=== PATIENT | male | born 1950 | race Caucasian/White ===

== ENCOUNTER 2019-03-22 17:11 | Inpatient (IN) | payer BC, MEDICARE ==
[~2019-03-22] VITALS: Ht 182.9 cm; Wt 113.7 kg
[2019-03-22] MEDS ORDERED: OMEPRAZOLE40 MG PO (17:17)
[2019-03-22] MEDS ORDERED: FLOMAX0.4 MG PO (17:17)
[2019-03-22] MEDS ORDERED: ELIQUIS5 MG PO (17:17)
[2019-03-22] MEDS ORDERED: LOVASTATIN40 MG PO (17:17)
[2019-03-22] MEDS ORDERED: BETAPACE 80 MG80 MG PO (17:17)
[2019-03-22] MEDS ORDERED: DIOVAN320 MG PO (17:17)
[2019-03-22] MEDS ORDERED: NEURONTIN600 MG PO (17:18)
--- NOTE | 2019-03-22 17:22 | NUR ---
FSBS= 151 MG/DL
[2019-03-22 17:45] LABS: BASOPHILS 0.1 % (0-2); EOSINOPHILS 0.5 % (0-7); HEMATOCRIT 45.2 % (42.0-54.0); HEMOGLOBIN 15.8 g/dL (13.5-17.5); IMMATURE GRANULOCYTES 0.2 % (0-5); LYMPHOCYTES 3.8 % (15-50); MCH 33.1 pg (26.0-34.0); MCV 94.6 fL (80.0-100.0); MEAN PLATELET VOLUME 9.9 fL (7.4-10.4); NEUTROPHILS 86.4 % (40-80); PLATELET COUNT 167 10x3/uL (130-400); RBC 4.78 10x6/uL (4.20-6.10); RDW 12.9 % (11.5-14.5); WBC 10.3 10x3/uL (4.8-10.8)
[2019-03-22 17:55] LABS: CALC OSMOLALITY 277 mosm/kg (275-300); CALCIUM 9.2 mg/dL (8.5-10.1); CARBON DIOXIDE 28.6 mmol/L (21.0-32.0); CHLORIDE - SERUM 99 mmol/L (98-107); GLUCOSE 152 mg/dL (74-106); POTASSIUM - SERUM 4.4 mmol/L (3.5-5.1); SODIUM 137 mmol/L (136-145); UREA NITROGEN 15 mg/dL (7-18); eGFR NON AFRICAN AMERICAN 78 mL/min (90-120)
[2019-03-22 17:56] LABS: APTT 32.7 SECONDS (22.8-39.4); INR 1.14 (0.85-1.17); PROTIME 14.6 SECONDS (11.6-15.0)
[2019-03-22 18:19] LABS: ALBUMIN 4.1 g/dL (3.4-5.0); ALKALINE PHOSPHATASE 78 U/L (46-116); ALT (SGPT) 48 U/L (10-68); BILIRUBIN - TOTAL 0.47 mg/dL (0.2-1.3); CKMB 0.8 U/L (0.0-3.6); CREATINE KINASE 140 UL (21-232); PROTEIN - SERUM 7.8 g/dL (6.4-8.2); THYROID STIMULATING HORMONE 1.49 uIU/mL (0.36-3.74)
--- NOTE | 2019-03-22 18:30 | NUR ---
IBU WOULD NOT SCAN, ATTEMPTED, STATED IT WASN'T ON THE PATIENT MAR
[2019-03-22 18:31] VITALS: BP 182/81
[2019-03-22 18:51] LABS: TROPONIN-I < 0.017 ng/mL (0.000-0.060)
[2019-03-22 19:33] VITALS: BP 159/94
--- NOTE | 2019-03-22 19:51 | NUR ---
URINE COLLECTED VIA URINAL AND SENT
[2019-03-22 20:19] LABS: UDS - AMPHET NEGATIVE QUAL (NEGATIVE); UDS - BARB NEGATIVE QUAL (NEGATIVE); UDS - BENZO NEGATIVE QUAL (NEGATIVE); UDS - COCAINE NEGATIVE QUAL (NEGATIVE); UDS - OPIATE NEGATIVE QUAL (NEGATIVE); UDS - PCP NEGATIVE QUAL (NEGATIVE); UDS - THC NEGATIVE QUAL (NEGATIVE)
[2019-03-22 20:22] LABS: APPEARANCE CLEAR (CLEAR); BILIRUBIN NEGATIVE (NEGATIVE); COLOR YELLOW (YELLOW); GLUCOSE NEGATIVE (NEGATIVE); KETONE SMALL mg/dL (NEGATIVE); NITRITE NEGATIVE (NEGATIVE); PROTEIN NEGATIVE (NEGATIVE); UROBILINOGEN NORMAL (NORMAL)
[2019-03-22 20:53] VITALS: BP 152/91
--- NOTE | 2019-03-22 20:53 | NUR ---
PATIENT RESTING QUIETLY WITH NO COMPLAINTS AT THIS TIME,CALL LIGHT WITHIN REACH, WENT HOME.
--- NOTE | 2019-03-23 00:38 | NUR ---
RECEIVED PATIENT TO ROOM 2110 @ 2245. PATIENT AAOX4, UP WITH ASSIST. NO S/S OF DISTRESS OBSERVED, RR EVEN AND UNLABORED ON ROOM AIR. DROPLET CAUTIONS INITIATED FOR FLU. PIV TO RT UPPER ARM, INFUSING NS@ 125ML/HR, DRSG C/D/I. QUICK START, MED REC, ADULT HX, SRS COMPLETED. VSS. AFTERSCHOOL BABYSITTER PLACED ON PATIENT. PATIENT DENIES NEEDS AT THIS TIME. CL IN REACH, BED LOCKED AND LOWERED. WILL CTM.
[2019-03-23 03:45] VITALS: BP 169/89; BMI 33.7
[2019-03-23 04:42] VITALS: BP 163/83
[2019-03-23 05:11] LABS: BASOPHILS 0 % (0-2); EOSINOPHILS 0.7 % (0-7); HEMATOCRIT 42.5 % (42.0-54.0); HEMOGLOBIN 14.8 g/dL (13.5-17.5); IMMATURE GRANULOCYTES 0.1 % (0-5); LYMPHOCYTES 10.7 % (15-50); MCH 32.8 pg (26.0-34.0); MCHC 34.8 g/dL (31.0-37.0); MCV 94.2 fL (80.0-100.0); MONOCYTES 12.1 % (2-11); NEUTROPHILS 76.4 % (40-80); PLATELET COUNT 148 10x3/uL (130-400); RBC 4.51 10x6/uL (4.20-6.10); RDW 12.9 % (11.5-14.5)
[2019-03-23 05:23] LABS: WBC 7.2 10x3/uL (4.8-10.8)
[2019-03-23 05:28] LABS: APTT 33.3 SECONDS (22.8-39.4); INR 1.12 (0.85-1.17); PROTIME 14.4 SECONDS (11.6-15.0)
[2019-03-23 06:31] LABS: ALBUMIN 3.6 g/dL (3.4-5.0); ALKALINE PHOSPHATASE 68 U/L (46-116); BILIRUBIN - TOTAL 0.42 mg/dL (0.2-1.3); CALC OSMOLALITY 279 mosm/kg (275-300); CALCIUM 8.6 mg/dL (8.5-10.1); CARBON DIOXIDE 23.7 mmol/L (21.0-32.0); CHLORIDE - SERUM 103 mmol/L (98-107); CKMB 1.2 U/L (0.0-3.6); GLUCOSE 139 mg/dL (74-106); PHOSPHOROUS 2.9 mg/dL (2.5-4.9); POTASSIUM - SERUM 3.8 mmol/L (3.5-5.1); PROTEIN - SERUM 7.5 g/dL (6.4-8.2); SODIUM 139 mmol/L (136-145); TROPONIN-I < 0.017 ng/mL (0.000-0.060); UREA NITROGEN 13 mg/dL (7-18); eGFR NON AFRICAN AMERICAN 78 mL/min (90-120)
[2019-03-23 06:32] LABS: ALT (SGPT) 34 U/L (10-68); CREATINE KINASE 236 UL (21-232)
[2019-03-23 12:01] VITALS: BP 173/97
[2019-03-23 13:31] VITALS: Ht 182.9 cm; Wt 113.7 kg
[2019-03-23 14:18] VITALS: BP 140/77
--- NOTE | 2019-03-23 16:07 | NUR ---
PT FOUND TO BE STANDING UP IN ROOM AT DOORWAY WITH BLOOD DRIPPING FROM ARM WHERE IV USED TO BE. PRESSURE HELD AND PT PLACED IN CHAIR. BLOOD CLEANED UP SANITIZED. PT ORIENTED TO HOSPITAL SETTING AGAIN. HE IS HAVING BOUTS OF CONFUSION AND FAMILY HAS LEFT NOW, WAS BETTER WHEN HERE.
--- NOTE | 2019-03-23 19:20 | NUR ---
REPORT RECEIVED. BEDSIDE SHIFT REPORT COMPLETE. PT UP IN BED, AT BEDSIDE. PT CONFUSED AND NOT SURE WHY HE IS IN THE HOSPITAL. NO NEEDS EXPRESSED. CALL LIGHT IN REACH, BED ALARM ON. WILL CTM.
[2019-03-23 20:00] VITALS: BP 171/95
[2019-03-24 04:00] VITALS: BP 162/88
[2019-03-24 04:58] LABS: BASOPHILS 0.2 % (0-2); EOSINOPHILS 2.1 % (0-7); HEMATOCRIT 40.3 % (42.0-54.0); HEMOGLOBIN 13.8 g/dL (13.5-17.5); IMMATURE GRANULOCYTES 0.2 % (0-5); LYMPHOCYTES 20.4 % (15-50); MCH 32.2 pg (26.0-34.0); MCHC 34.2 g/dL (31.0-37.0); MCV 94.2 fL (80.0-100.0); MEAN PLATELET VOLUME 10.2 fL (7.4-10.4); MONOCYTES 18.1 % (2-11); PLATELET COUNT 132 10x3/uL (130-400); RBC 4.28 10x6/uL (4.20-6.10); WBC 4.9 10x3/uL (4.8-10.8)
[2019-03-24 05:21] LABS: CALC OSMOLALITY 281 mosm/kg (275-300); CALCIUM 8.4 mg/dL (8.5-10.1); CHLORIDE - SERUM 104 mmol/L (98-107); MAGNESIUM - SERUM 2.2 mg/dL (1.8-2.4); PHOSPHOROUS 2.7 mg/dL (2.5-4.9); SODIUM 138 mmol/L (136-145); UREA NITROGEN 15 mg/dL (7-18); eGFR NON AFRICAN AMERICAN 78 mL/min (90-120)
[2019-03-24 05:22] LABS: GLUCOSE 196 mg/dL (74-106)
[2019-03-24] MEDS ORDERED: TAMIFLU75 MG PO (10:22)
[2019-03-24 10:40] VITALS: BP 163/87
--- NOTE | 2019-03-24 10:47 | NUR ---
PT AWAKE AND ORIENTED THIS MORNING, GRUMPY BUT ALERT. PT TO BE D/C, HAS RIDE TO PICK HIM UP. NO COMPLAINTS/COCNERNS, CL INR EACH, SRX2.
--- NOTE | 2019-03-24 13:12 | NUR ---
PT ESCORTED OUT VIA WHEELCHAIR TO POV WITH FAMILY MEMBER. CL IN REACH,S RX.2
--- NOTE | 2019-03-26 08:55 | MORECARE ---
CASE MANAGEMENT DISCHARGE SUMMARY PATIENT: TIP CASE UNIT: [id number] ADM DATE: 03/23/19 AGE: 69 : 48 SEX: M ROOM/BED: D.2110 AUTHOR: EVETTE PACE PHYSICIAN: REFERRING PHYSICIAN: ERNESTINA ROA MD DATE OF SERVICE: 03/26/19 Discharge Plan Patient Name: TIP [facility] [facility] 1950 Planned Disposition: Home Anticipated Discharge Date: 03/24/19 Discharge Date: 03/24/2019 Expected LOS: 1 Initial Reviewer: [email or web address] Initial Review Date: 03/26/2019 Generated: 03/26/19 9:55 am Patient Name: TIP CASE Page [id number] at 0855 All edits/amendments must be made on the electronic document DICTATION DATE: 03/26/1956 JOB TRAINING SPECIALIST: KENY 03/26/19 0855 RPT#: [id number] DC DATE:03/24/19 STATUS: DIS IN [facility] [address] [place] [address] END OF REPORT
== END 2019-03-24 13:12 | disposition home or self-care (01) | DRG 193 ==
LOC: D.ER 17:11 → D.M2 19:55 → OBSVTIME 19:55 → D.M2 19:55
PROVIDERS: Emergency Medicine; Family Medicine; ADMIT Family Medicine; ATTEND Family Medicine
DX: J10.1 Influenza due to other identified influenza virus with other respiratory manifestations (principal); G93.41 Metabolic encephalopathy; G47.33 Obstructive sleep apnea (adult) (pediatric); K21.9 Gastro-esophageal reflux disease without esophagitis; I48.91 Unspecified atrial fibrillation; E78.5 Hyperlipidemia, unspecified; G62.9 Polyneuropathy, unspecified